=== PATIENT | female | born 1955 | race Asian ===

== ENCOUNTER → 2022-03-28 11:26 | Outpatient (CLI) | payer OTHER, SELFPAY ==
--- NOTE | ~2022-03-28 | XR_ITS ---
EXAM: XR knee LT 2V DATE: 03/28/2022 12:03 HISTORY: M25.562 - Pain in left knee . COMPARISON: None available. FINDINGS: Decreased mineralization. No fracture or dislocation. No lytic or blastic lesion. Moderate medial joint space narrowing. Tricompartmental osteophytosis, moderate in the medial compartment. No erosion or periosteal change. Soft tissues within normal limits. Small volume joint effusion. IMPRESSION: No acute osseous finding in the left knee. 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 Reviewed, dictated and finalized at location K. IMPRESSION: No acute osseous finding in the left knee. Tricompartmental osteoar thritis, moderate in the medial compartment.
--- NOTE | ~2022-03-28 | XR_ITS ---
XR knee RT 2V 03/28/2022 12:03 Indication: Right knee pain Procedure: 2 views right knee Comparison: No prior studies for comparison. Findings: There is moderate tricompartment osteoarthritis of the right knee. No fracture, subluxation or dislocation. No significant joint effusion. No foreign bodies. Impression: 1: Moderate osteoarthritis of the right knee. Reviewed, dictated and finalized at location A. Impression: 1: Moderate osteoarthritis of the right knee.
== END ==
PROVIDERS: PCP Nurse Practitioner; Visit Provider Nurse Practitioner
DX: M17.0 Bilateral primary osteoarthritis of knee (principal)
CPT/HCPCS: 73560

== ENCOUNTER 2022-07-14 10:15 | Emergency (ER) | payer OTHER, SELFPAY ==
--- NOTE | ~2022-07-14 | XR_ITS ---
EXAMINATION: XR shoulder LT min 2V DATE: 07/14/2022 10:42 INDICATION: Left shoulder pain TECHNIQUE: AP internally and externally rotated, AP oblique externally rotated and transscapular Y vi ews of the left shoulder were obtained. COMPARISON: None FINDINGS: Normal alignment. No fracture. Tiny marginal osteophytes along the inferior glenoid with relatively preserved joint space consistent with minimal osteoarthritis. Moderate acromioclavicular osteoarthrit is. Mild thoracic spondylosis. Soft tissues are unremarkable. Visualized portions of the lungs are cl ear. IMPRESSION: Moderate left acromioclavicular and minimal glenohumeral osteoarthritis. No acute osseous abnormality . Reviewed, dictated and finalized at location A. IMPRESSION: Moderate left acromioclavicular and minimal glenohumeral osteoarthritis. No acu te osseous abnormality.
--- NOTE | ~2022-07-14 | XR_ITS ---
EXAMINATION:XR_[id number]_CR DATE: 07/14/2022 10:42 INDICATION: Left arm numbness TECHNIQUE: AP, lateral, lateral swimmers and odontoid views of the cervical spine are provided. COMPARISON: None FINDINGS: There are 2 mm of anterolisthesis of C3 on C4. The odontoid is intact. No fracture is ident ified. The vertebral body heights are maintained. There is moderate loss of intervertebral disc space height at C4-5 and C5-6. Small degenerative osteophytes project from the anterior endplates of multi ple vertebral bodies. There is moderate multilevel facet and uncovertebral joint osteoarthritis. Prev ertebral soft tissues are normal. IMPRESSION: 1. Moderate cervical spondylosis without acute findings. Reviewed, dictated and finalized at location B.
--- NOTE | 2022-07-14 10:26 | ECG_ITS ---
Measurements Intervals [place] Rate: 68 P: 14 VT: 159 QRS: 22 QRSD: 83 T: 49 QT: 392 QTc: 418 Interpretive Statements SINUS RHYTHM WITH FREQUENT SUPRAVENTRICULAR PREMATURE COMPLEXES ABNORMAL RHYTHM ECG NO PREVIOUS ECG AVAILABLE FOR COMPARISON Electronically Signed On 07-14-2022 14:08:04 CDT by Brody Dawson M.D.
[2022-07-14 10:28] VITALS: BP 144/65; PULSE 66; RESP 16; TEMP 36.5; O2SAT 99
--- NOTE | 2022-07-14 10:31 | ED.UPPEXIN ---
HPI - Extremity Injury (Upper) General Chief Complaint: Back Pain/Injury Stated Complaint: left arm tingling x 1 month Time Seen by Provider: 07/14/22 10:19 History of Present Illness HPI narrative: 67-year-old female presents to the emergency room for evaluation of intermittent left arm paresthesias that have been present for 5 weeks. Patient also complains left scapular discomfort when moving her arms in certain directions. Patient states paresthesias are not aggravating or alleviated by anything. States this was seen at her primary care physician's office and was diagnosed with muscle spasms. Patient denies any shortness of breath difficulty breathing or chest pain. Denies any known injury or trauma to her shoulder. Denies any motor weakness of her left upper extremity. Review of Systems Review of Systems: CONSTITUTIONAL: Denies fever, chills, or sweats. EYES: Denies visual changes, redness, or discharge. ENT: Denies rhinorrhea, congestion, sore throat, or otalgia. CARDIOVASCULAR: Denies chest pain, palpitations, or edema. RESPIRATORY: Denies cough or dyspnea. GASTROINTESTINAL: Denies abdominal pain, nausea, vomiting, or diarrhea. GENITOURINARY: Denies dysuria or hematuria. SKIN: Denies rash or itching. MUSCULOSKELETAL: Denies back pain, joint pain, or myalgia. NEUROLOGIC: Left arm paresthesia PSYCHIATRIC: Denies anxiety or depression. Exam Narrative: GENERAL: Well-appearing, well-nourished, no physical limitations, and in no acute distress. HEAD: Normocephalic, atraumatic. EYES: Conjunctivae normal, PERRLA and EOMI. CHEST: Clear to auscultation. No respiratory distress. No wheezes rales or rhonchi. No tenderness. HEART: Regular rate and rhythm. No murmur heard. Normal peripheral pulses. ABDOMEN: Soft, nontender, nondistended, normal active bowel sounds. EXTREMITIES: LUE: No bony abnormality. Mild tenderness over the scapula. Full range of motion of the left shoulder. Strength is 5/5 bilaterally, manager multicultural strength is equal bilaterally. Radial pulse present. SKIN: Warm, dry, no rash. No noted wounds NEURO: No focal deficits. Alert and oriented x3. MAEW. CN's II-XI intact bilaterally, normal gait PSYCH: Cooperative. Normal mood and affect. Course Vital Signs Vital signs: Vital Signs Temperature 36.5 C 07/14/22 10:28 Pulse Rate 66 07/14/22 10:28 Respiratory Rate 16 07/14/22 10:28 Blood Pressure 144/65 H 07/14/22 10:28 Pulse Oximetry 99 07/14/22 10:28 Oxygen Delivery Room Air 07/14/22 10:28 Temperature 36.5 C 07/14/22 10:28 Pulse Rate 66 07/14/22 10:28 Respiratory Rate 16 07/14/22 10:28 Blood Pressure 144/65 H 07/14/22 10:28 Pulse Oximetry 99 07/14/22 10:28 Oxygen Delivery Room Air 07/14/22 10:28 MDM - Extremity Injury (Upper) Lab Data Labs: Lab Results 07/14/22 Range/Units 11:14 Troponin I < 0.012 (0.000-0.034) ng/mL Discharge Plan Discharge Clinical Impression: Cervical neuropathy Patient Disposition: Home, Self-Care Condition: Stable Instructions: Antibiotic Form, Osteoarthritis (DC), Cervical Radiculopathy (ED) Additional Instructions: Recommend taking a daily vitamin D3. Her numbness and tingling is likely due to arthritis found in your neck and your shoulder. Recommend following up with your primary care physician if your symptoms continue. Prescriptions: New meloxicam 15 mg tablet 15 mg PO DAILY Qty: 30 0RF Follow-up/Referrals: Cornelius Tam DO [Primary Care Provider] - Time of Disposition: 11:58
[2022-07-14 11:42] LABS: Troponin I < 0.012 ng/mL (0.000-0.034)
[2022-07-14 12:15] LABS: Glucose Point of Care 91 mg/dl (65-105)
[2022-07-14 12:26] VITALS: BP 142/86; PULSE 86; RESP 16; O2SAT 98
== END 2022-07-14 12:28 | disposition home or self-care (01) ==
PROVIDERS: Emergency Provider Nurse Practitioner Family; PCP Internal Medicine
DX: M47.812 Spondylosis without myelopathy or radiculopathy, cervical region (principal); I49.1 Atrial premature depolarization; M19.012 Primary osteoarthritis, left shoulder
CPT/HCPCS: 36415; 72040; 73030; 82948; 84484; 93005; 99284

== ENCOUNTER 2023-09-04 14:28 | Outpatient (CLI) | payer MEDICARE, SELFPAY ==
--- NOTE | ~2023-09-04 | MM_ITS ---
EXAMINATION: MM screening oneil BI w ramon HISTORY: Screening TECHNIQUE: Craniocaudal and mediolateral oblique 3-D tomosynthesis images were obtained and synthetic 2-D images were generated. CAD analysis was submitted and interpreted. COMPARISON: No prior mammogram is available for comparison at this institution. BREAST PARENCHYMAL COMPOSITION: There are scattered areas of fibroglandular density. FINDINGS: There is no evidence of suspicious mass, calcification, or architectural distortion to sugg est malignancy in either breast. There has been no suspicious interval change. IMPRESSION: 1. No mammographic evidence of malignancy. 2. Recommend routine screening mammography in one year. BI-RADS Category 1: Negative Reviewed, dictated and finalized at location A. 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
--- NOTE | ~2023-09-04 | DEXA_ITS ---
Bone Density Report Name: ANGELA JOSE Age: 68 Sex: Female Ethnicity: Date of : 1955 Indication: postmenopausal; screening for osteoporosis; Referring Provider: JULIETTE INGRAM Study: Bone densitometry was performed. Exam Date: September 04, 2023 Accession number: [id number] Bone Density: Region BMD T-score Z-score Classification AP Spine(L1-L4) 0.780 -2.4 -0.4 Osteopenia Femoral Neck (Left) 0.593 -2.3 -0.6 Osteopenia Total Hip (Left) 0.785 -1.3 0.1 Osteopenia Femoral Neck (Right) 0.598 -2.3 -0.6 Osteopenia Total Hip (Right) 0.760 -1.5 -0.1 Osteopenia Total Hip Mean 0.773 -1.4 0.0 Osteopenia World Health Organization criteria for BMD impression classify patients as: Normal (T-score at or above -1.0), Osteopenia (T-score between -1.0 and -2.5), or Osteoporosis (T-score at or below -2.5). 10-year Fracture Risk(1): Major Osteoporotic Fracture 7.0% Hip Fracture 1.4% Reported Risk Factors: [place] (), Neck BMD=0.593, BMI=28.0 (1) FRAX(R) Version 3.08. Fracture probability calculated for an untreated patient. Fracture probability may be lower if the patient has received treatment. Clinical Information Provided by Patient: Has used the following medications: Calcium Patient maximum height was 62 Menopause Age: 42 No regular weight bearing exercise Onset of menses at age 15 Number of children 3 Impression: The patient has low bone mass, based on the Total Spine T-score. The patient has an estimated ten-year risk of hip fracture of 1.4% and an estimated ten-year risk of major fracture of 7%, based on the WHO FRAX algorithm. Discussion: BONE DENSITY IS LOW AT ONE OR MORE SKELETAL SITES. This patient's lowest T-score is low at one or more skeletal sites. It meets the World Health Organization's (WHO) criteria for ?low bone mass? (T-score between -1.0 and -2.5). The patient's 10-year risk of fracture as calculated by FRAX is less than the threshold where pharmacological therapy is recommended by the National Osteoporosis Foundation (NOF). However, all treatment decisions require clinical judgment and consideration of individual patient factors, including patient preferences, comorbidities, previous drug use, risk factors not captured in the FRAX model (e.g., frailty, falls, vitamin D deficiency, increased bone turnover, interval significant decline in bone density) and possible under or overestimation of fracture risk by FRAX. The patient should follow a healthful lifestyle (good nutrition with adequate calcium and vitamin D, and appropriate weight-bearing exercise). Follow-Up: Consider repeating this study in 2 to 3 years to reassess this patient's status, or sooner if there is some new clinical indication. Reported by: MIGUELINA on 09/04/2023 3:07:00 PM.
== END 2023-09-04 14:29 | disposition home or self-care (01) ==
PROVIDERS: PCP Family Medicine; Visit Provider Nurse Practitioner
DX: Z12.31 Encounter for screening mammogram for malignant neoplasm of breast (principal); Z78.0 Asymptomatic menopausal state; M85.89 Other specified disorders of bone density and structure, multiple sites
CPT/HCPCS: 77063; 77067; 77080

== ENCOUNTER 2023-11-22 15:43 | Outpatient (CLI) | payer MEDICARE, SELFPAY ==
[2023-11-22 18:40] LABS: Alanine Aminotransferase 98 U/L (6-35); Albumin Level 4.5 g/dL (3.5-5.1); Alkaline Phosphatase 251 U/L (38-126); Anion Gap 7 mmol/L (8-16); Aspartate Amino Transferase 92 U/L (14-36); Bilirubin,Total 0.5 mg/dL (0.2-1.3); Blood Urea Nitrogen 19 mg/dL (7-17); Carbon Dioxide 28 mmol/L (22-30); Chloride 103 mmol/L (98-107); Estimated Glomerular Filt Rate > 60; Glucose 152 mg/dL (65-110); Potassium 4.6 mmol/L (3.4-5.0); Sodium 138 mmol/L (137-145)
[2023-11-22 18:53] LABS: Hemoglobin A1C 6.2 % (<5.7)
[2023-11-22 19:16] LABS: MALB Creatinine Ratio 9.6 mg/g (0-30); Microalbumin Urine Random 15.5 mg/L (0-16.7)
[2023-11-22 19:26] LABS: Vitamin D 25 Hydroxy 60.5 ng/mL
[2023-11-22 19:28] LABS: Hepatitis C Virus Antibody Negative (Negative)
[2023-11-23 09:24] LABS: Free T4 Free Thyroxine Reflex 0.69 ng/dL (0.78-2.19)
== END 2023-11-22 15:44 | disposition home or self-care (01) ==
LOC: ANHGOSHLAB 15:44
PROVIDERS: PCP Family Medicine; Visit Provider Family Medicine
DX: E55.9 Vitamin D deficiency, unspecified (principal); E11.9 Type 2 diabetes mellitus without complications; I10 Essential (primary) hypertension; Z11.59 Encounter for screening for other viral diseases; E03.9 Hypothyroidism, unspecified
CPT/HCPCS: 36415; 80053; 82043; 82306; 83036; 84439; 84443; 86803

== ENCOUNTER 2024-04-28 08:33 | Outpatient (CLI) | payer MEDICARE, SELFPAY ==
[2024-04-28 11:38] LABS: Basophils Absolute Auto 0.1 K/mm3 (0.0-0.1); Basophils Percent Auto 0.9 % (0.2-1.2); Eosinophils Absolute Auto 0.5 K/mm3 (0-0.3); Eosinophils Percent Auto 5.9 % (0-4.4); Hematocrit 32.9 % (37.0-47.0); Hemoglobin 9.8 g/dL (12.0-15.0); Immature Granulocyte Absolute 0.02 K/mm3 (0.00-0.031); Immature Granulocyte Percent A 0.2 % (0-0.5); Lymphocytes Percent Auto 23.8 % (18.3-44.2); Mean Corpuscular HGB Conc 29.8 g/dl (32-36); Mean Corpuscular Hemoglobin 18.8 pg (26-34); Mean Platelet Volume 10.6 fl (7.4-10.4); Monocytes Absolute Auto 0.8 K/mm3 (0.1-0.6); Monocytes Percent Auto 9.5 % (2.6-8.5); Neutrophils Absolute Auto 5.3 K/mm3 (1.3-6.7); Neutrophils Percent Auto 59.7 % (45.5-73.1); Platelet Count Result 372 k/mm3 (150-375); Red Blood Count 5.22 M/mm3 (4.2-5.4); White Blood Count 8.8 K/mm3 (4.5-10.0)
[2024-04-28 11:53] LABS: Alanine Aminotransferase 22 U/L (6-35); Albumin Level 4.4 g/dL (3.5-5.1); Alkaline Phosphatase 96 U/L (38-126); Anion Gap 9 mmol/L (4-12); Aspartate Amino Transferase 38 U/L (14-36); Bilirubin,Total 0.7 mg/dL (0.2-1.3); Blood Urea Nitrogen 13 mg/dL (7-17); Calcium 9.4 mg/dL (8.4-10.2); Carbon Dioxide 26 mmol/L (22-30); Chloride 101 mmol/L (98-107); Cholesterol 111 mg/dL (0-200); Estimated Glomerular Filt Rate > 60; Glucose 89 mg/dL (65-110); HDL Direct 52 mg/dL; Potassium 4.8 mmol/L (3.4-5.0); Sodium 136 mmol/L (137-145); Triglycerides 57 mg/dL (<150)
[2024-04-28 12:00] LABS: Anisocytosis 1+; Hypochromasia 1+; Microcytosis 1+ (NORMAL); Platelet Estimate Adequate (Adequate); Schistocytes None Seen; Target Cells 1+
[2024-04-28 12:04] LABS: LDL Cholesterol Direct 34 mg/dL
[2024-04-28 12:32] LABS: Iron 110 ug/dL (37-170)
[2024-04-28 12:40] LABS: Creatinine Urine 135.1 mg/dL
[2024-04-28 12:43] LABS: Percent Iron Saturation 31 % (20-50)
[2024-04-28 12:45] LABS: MALB Creatinine Ratio 5.2 mg/g (0-30); Vitamin D 25 Hydroxy 41.7 ng/mL
[2024-04-28 12:47] LABS: Hepatitis C Virus Antibody Negative (Negative)
[2024-04-28 12:51] LABS: Hemoglobin A1C 6.5 % (<5.7)
[2024-04-28 12:55] LABS: Folic Acid 8.8 ng/mL (2.76->20)
[2024-04-29 03:51] LABS: Free T4 Free Thyroxine Reflex 0.95 ng/dL (0.78-2.19)
[2024-04-29 04:36] LABS: Total Triiodothyronine (T3) 1.21 NG/ML (0.97-1.69)
== END 2024-04-28 08:34 | disposition home or self-care (01) ==
PROVIDERS: PCP Family Medicine; Visit Provider Family Medicine
DX: D64.9 Anemia, unspecified (principal); I10 Essential (primary) hypertension; R79.89 Other specified abnormal findings of blood chemistry; E03.9 Hypothyroidism, unspecified; E11.9 Type 2 diabetes mellitus without complications; Z11.59 Encounter for screening for other viral diseases; Z00.00 Encounter for general adult medical examination without abnormal findings; E78.5 Hyperlipidemia, unspecified; E55.9 Vitamin D deficiency, unspecified
CPT/HCPCS: 36415; 80053; 80061; 82043; 82306; 82607; 82728; 82746; 83036; 83540; 83550; 84439; 84443; 84480; 85025; 86803

== ENCOUNTER 2024-11-12 15:15 | Outpatient (CLI) | payer MEDICARE, SELFPAY ==
[2024-11-12 20:10] LABS: Basophils Absolute Auto 0.1 K/mm3 (0.0-0.1); Basophils Percent Auto 0.9 % (0.2-1.2); Eosinophils Absolute Auto 0.3 K/mm3 (0-0.3); Eosinophils Percent Auto 3.1 % (0-4.4); Hematocrit 33.7 % (37.0-47.0); Immature Granulocyte Absolute 0.04 K/mm3 (0.00-0.031); Immature Granulocyte Percent A 0.4 % (0-0.5); Lymphocytes Absolute Auto 2.14 K/mm3 (0.9-3.2); Lymphocytes Percent Auto 20.6 % (18.3-44.2); Mean Corpuscular HGB Conc 29.7 g/dl (32-36); Mean Corpuscular Hemoglobin 18.5 pg (26-34); Mean Corpuscular Volume 62.3 fl (80-100); Mean Platelet Volume 10.2 fl (7.4-10.4); Monocytes Percent Auto 9.3 % (2.6-8.5); Neutrophils Absolute Auto 6.8 K/mm3 (1.3-6.7); Neutrophils Percent Auto 65.7 % (45.5-73.1); Platelet Count Result 406 k/mm3 (150-375); Red Blood Count 5.41 M/mm3 (4.2-5.4); Red Cell Distribution Width 18.1 % (11.5-14.5); White Blood Count 10.4 K/mm3 (4.5-10.0)
[2024-11-12 20:39] LABS: Hypochromasia 1+; Microcytosis 1+ (NORMAL); Ovalocytes 1+; Platelet Estimate Slightly Increased (Adequate)
[2024-11-12 20:40] LABS: Schistocytes None Seen
[2024-11-12 20:45] LABS: Iron 65 ug/dL (37-170)
[2024-11-12 20:47] LABS: Alanine Aminotransferase 30 U/L (6-35); Albumin Level 4.5 g/dL (3.5-5.1); Alkaline Phosphatase 96 U/L (38-126); Anion Gap 14 mmol/L (4-12); Aspartate Amino Transferase 34 U/L (14-36); Bilirubin,Total 0.5 mg/dL (0.2-1.3); Blood Urea Nitrogen 14 mg/dL (7-17); Calcium 9.6 mg/dL (8.4-10.2); Carbon Dioxide 23 mmol/L (22-30); Chloride 102 mmol/L (98-107); Estimated Glomerular Filt Rate > 60; Glucose 129 mg/dL (65-110); Potassium 4.5 mmol/L (3.4-5.0); Sodium 139 mmol/L (137-145)
[2024-11-12 20:55] LABS: Percent Iron Saturation 19 % (20-50)
[2024-11-12 21:15] LABS: Hemoglobin A1C 6.2 % (<5.7)
[2024-11-12 21:34] LABS: Vitamin D 25 Hydroxy 52.5 ng/mL
[2024-11-12 21:54] LABS: Folic Acid 7.1 ng/mL (2.76->20)
== END 2024-11-12 15:16 | disposition home or self-care (01) ==
PROVIDERS: PCP Family Medicine; Visit Provider Family Medicine
DX: D64.9 Anemia, unspecified (principal); Z00.00 Encounter for general adult medical examination without abnormal findings; E55.9 Vitamin D deficiency, unspecified; E11.9 Type 2 diabetes mellitus without complications; E03.9 Hypothyroidism, unspecified; I10 Essential (primary) hypertension
CPT/HCPCS: 36415; 80053; 82306; 82607; 82728; 82746; 83036; 83540; 83550; 84443; 85025